=== PATIENT | male | born 1985 | race African-American/Black ===

== ENCOUNTER 2019-09-13 20:09 | Observation (INO) | payer MEDICAID, OTHER ==
[~2019-09-13] VITALS: Ht 172.7 cm; Wt 81.7 kg
[2019-09-13 21:00] LABS: HEMOGLOBIN 15.4 g/dl (13.5-17.5); MEAN CORPUSCULAR HEMOGLOBIN 27.4 pg (27.0-33.0); MEAN CORPUSCULAR HGB CONC 32.8 g/dl (32.0-36.5); MEAN CORPUSCULAR VOLUME 83.5 fl (80.0-96.0); PLATELET COUNT, AUTOMATED 196 10^3/uL (150-450); RED BLOOD COUNT 5.63 10^6/uL (4.30-6.10); WHITE BLOOD COUNT 6.6 10^3/uL (4.0-10.0)
[2019-09-13 21:26] LABS: ABG BASE EXCESS -1.6 (-2.0-2.0); ABG HCO3 23.1 MEQ/L (22.0-26.0); ABG O2 SATURATION 96.1 % (95.0-99.0); ABG PARTIAL PRESSURE CO2 39.1 mmHg (35.0-45.0); ABG PARTIAL PRESSURE O2 80.2 mmHg (75.0-100.0); ABG STANDARD HCO3 23.1 MEQ/L (22.0-26.0); ABG TOTAL CO2 24.3 MEQ/L (22.0-29.0); ABG pH (ARTERIAL) 7.389 UNITS (7.350-7.450)
--- NOTE | 2019-09-13 21:47 | REPVR ---
PROCEDURE INFORMATION: Exam: CT Head Without Contrast Exam date and time: 09/13/2019 9:03 PM Clinical history: 34 years old, male; Altered mental status/memory loss; Confusion or disorientation TECHNIQUE: Imaging protocol: Computed tomography of the head without contrast. Radiation optimization: All CT scans at this facility use at least one of these dose optimization techniques: automated exposure control; mA and/or kV adjustment per patient size (includes targeted exams where dose is matched to clinical indication); or iterative reconstruction. COMPARISON: No relevant prior studies available. FINDINGS: Brain: Normal. No hemorrhage. Unremarkable white matter. No mass effect. Ventricles: Normal. No ventriculomegaly. Bones/joints: Unremarkable. No acute fracture. Sinuses: Visualized sinuses are unremarkable. No fluid levels. Mastoid air cells: Visualized mastoid air cells are well aerated. Soft tissues: Unremarkable. IMPRESSION: No acute intracranial abnormality. Electronically signed by: Alex Scott On 09/13/2019 21:47:09 PM
[2019-09-13 21:50] LABS: ACETAMINOPHEN LEVEL < 2.0 UG/ML (10.0-30.0); ALBUMIN 4.1 GM/DL (3.2-5.2); ALT/SGPT 58 U/L (12-78); BILIRUBIN,DIRECT < 0.1 MG/DL (0.0-0.2); BILIRUBIN,TOTAL 0.3 MG/DL (0.2-1.0); BLOOD UREA NITROGEN 15 MG/DL (7-18); CALCIUM LEVEL 9.1 MG/DL (8.5-10.1); CARBON DIOXIDE LEVEL 28 MEQ/L (21-32); CHLORIDE LEVEL 108 MEQ/L (98-107); CK-MB VALUE MASS 4.2 NG/ML (<3.6); CPK CREATINE PHOSPHOKINASE 1266 U/L (39-308); CREATININE FOR GFR 1.27 MG/DL (0.70-1.30); ETHYL ALCOHOL (ETHANOL) < 0.003 % (0.000-0.010); GLOMERULAR FILTRATION RATE > 60.0 (>60); GLUCOSE, FASTING 89 MG/DL (70-100); MB/CK RELATIVE INDEX 0.33 (< OR =4); POTASSIUM SERUM 3.9 MEQ/L (3.5-5.1); SALICYLATE LEVEL < 1.7 MG/DL (5.0-30.0); SODIUM LEVEL 141 MEQ/L (136-145); TOTAL PROTEIN 8.1 GM/DL (6.4-8.2); TROPONIN I < 0.02 NG/ML (< 0.10)
[2019-09-13 22:28] LABS: AMPHETAMINES LEVEL URINE NEGATIVE (NEGATIVE); BARBITURATES URINE NEGATIVE (NEGATIVE); BENZODIAZEPINES URINE NEGATIVE (NEGATIVE); CANNABINOIDS URINE NEGATIVE (NEGATIVE); COCAINE METABOLITE URINE NEGATIVE (NEGATIVE); METHADONE URINE NEGATIVE (NEGATIVE); OPIATES URINE NEGATIVE (NEGATIVE); PHENCYCLIDINE URINE NEGATIVE (NEGATIVE)
[2019-09-13] MEDS ORDERED: VITMTA PO (22:55)
--- NOTE | 2019-09-13 23:43 | HPEPDOC ---
[facility] Medical History & Physical Date of Admission Sep 13, 2019 Date of Service: Sep 13, 2019 Primary Care Physician: A Attending Physician: ANGE DIANA MD History and Physical CC: dizziness HPI : This 34-year-old male presented after having a syncopal episode. 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 At this point. Patient is unfamiliar with the remainder of the events. His commanding officer, as well as the field medic confirmed the story, stating that patient felt dizzy, sat down and immediately passed out. The medics noted patient had slow respiration, so they started giving patient [id number]. They then attempted to place an oropharyngeal airway, when that appeared not to work and they attempted to place a nasopharyngeal airway, at which point patient started to gag. It was approximately around this time the EMS arrived and st arted to bag mask patient. He was unresponsive during transport to the hospital. There were no reports of seizure-like activity or trauma. Patient states that he had had poor appetite all day. Prior to getting dizzy he had only drank 2 bottles of red bull. During my interview with patient, he was alert, oriented, remember feeling dizzy, but was unable to recall the events after. He had no acute complaints during my assessment. He was aware of surroundings. PAST MEDICAL HISTORY: No reported past medical history PAST SURGICAL HISTORY: None SOCIAL HISTORY: Works in [employer] for the [employer]. FAMILY HISTORY: Denies any history of seizures, denies any heart condition. ALLERGIES: Please s ee below. REVIEW OF SYSTEMS: CONSTITUTIONAL: No fevers, denies chills, denies weight loss, denies lethargy HEENT: No rhinorrhea, no itchy eyes, no congesion, No tonsilor exudates CARDIOVASCULAR: No murmurs no palpitations and arrhythmias RESPIRATORY: Not cough, No SOB, no issues to report GASTROINTESTINAL: No nausea, no vomiting, no difficulty swallowing, no pain with eating, no diarrhea HEMATOLOGICAL: No bleeding GENITOURINARY:No Issues HEMATOLOGIC/LYMPHATIC: No swelling, No bleeding NEURO: Dizziness PE GENERAL APPEARANCE: Alert no acute distress. , Oriented times place, no focal neurological deficits SKIN: Warm, well perfused. ENT: Palate intact, simms tympanic membrane no bulging, no erythema, Neck supple, no thyromegaly THORAX: Symmetrical. LUNGS: Clear to auscultation bilaterally. HEART: Normal S1, S2. No murmurs, no rubs, no gallops ABDOMEN: Soft. No masses. Bowel sounds are present. TRUNK/SPINE:Straight. EXTREMITIES: Moves all extremities equally. No gross deformities. PULSES: 2+ upper and lower extremity . VIEW OF SYSTEMS: Neurologic exam, cranial nerves II-12 intact, reflexes intact, intact sensations bilateral upper and lower extremity, HOME MEDICATIONS: Please see below. LABORATORY DATA: See below. IMAGING: CT head no acute findings MICROBIOLOGY: Please see below. ASSESSMENT/ PLAN is a 34-year-old male with no significant PMH who will be admitted for observation after having a syncopal episode. 1. Syncopal Episode Likely vasovagal in the setting of secondary to poor appetite and consuming red bull. Unlikely to be cardiac or due to heat exhaustion His Trop, EKG, CT of the head was unrevealing. Negative. Drug screen Maur[place] Syncope Risk Score to determine 30 day risk of serious adverse events in patients w syncope = -1 points = Low risk. Patient has a very low risk of serious breathing adverse effects including , arrhythmia or PR. Plan: admit under observation / telemetry / fall & seizure precautions DVT Px w SCDs Disposition: likely home tomorrow if work up is unremarkable, Prior to discharge patient's commanding officer would like to be contacted so they can arrange transportation for patient he can be contacted at [phone], name is staff sergeant Murphy,. If unavailable, please call second Lieut. Luly at [phone] Vital Signs Vital Signs Date Time Temp Pulse Resp B/P (MAP) Pulse Ox O2 Delivery O2 Flow Rate FiO2 09/13/19 23:25 78 95 09/13/19 23:15 17 152/95 (114) 09/13/19 20:40 97.8 Laboratory Data Labs 24H Laboratory Tests 2 09/13/19 20:48: Nucleated Red Blood Cells % (auto) 0.0 09/13/19 20:56: Anion Gap 5L, Glomerular Filtration Rate > 60.0, Calcium Level 9.1, Total Bilirubin 0.3, Direct Bilirubin < 0.1, Aspartate Amino Transf (AST/SGOT) 39H, A lanine Aminotransferase (ALT/SGPT) 58, Alkaline Phosphatase 117, Total Creatine Kinase 1266H, Creatine Kinase MB 4.2H, Creatine Kinase MB Relative Index 0.33, Troponin I < 0.02, Total Protein 8.1, Albumin 4.1, Albumin/Globulin Ratio 1.03, Thyroid Stimulating Hormone (TSH) 1.600, Salicylates Level < 1.7L, Acetaminophen Level < 2.0L, Ethyl Alcohol Level < 0.003 09/13/19 21:18: Blood Gas Bicarbonate Standard 23.1, Arterial Blood pH 7.389, Arterial Blood Partial Pressure CO2 39.1, Arterial Blood Partial Pressure O2 80.2, Arterial Blood Total CO2 24.3, Arterial Blood HCO3 23.1, Arterial Blood Base Excess -1.6, Arterial Blood Oxygen Saturation 96.1 09/13/19 21:48: Urine Opiates Screen NEGATIVE, Urine Methadone Screen NEGATIVE, Urine Barbiturates Screen NEGATIVE, Urine Phencyclidine Screen NEGATIVE, Urine Amphetamines Screen NEGATIVE, Urine Benzodiazepines Screen NEGATIVE, Urine Cocaine Metabolite Screen NEGATIVE, Urine Cannabinoids Screen NEGATIVE CBC/BMP Laboratory Tests 09/13/19 20:48 09/13/19 20:56 Home Medications Scheduled Amlodipine Besylate (Amlodipine Besylate) 2.5 Mg Tablet, 2.5 MG PO DAILY Multivitamins (Thera M Plus Tablet) 1 Each Tablet, 1 TAB PO DAILY Allergies Coded Allergies: amoxicillin (Verified Allergy, Mild, SWELLING, 09/16/19) GME ATTESTATION GME ATTESTATION My faculty preceptor for this patient encounter was physically present during the encounter and was fully available. All aspects of the patient interview, examination, medical decision making process, and medical care plan development were reviewed and approved by the faculty preceptor. The faculty preceptor is aware and concurs with the plan as stated in the body of this note and will attest to such by his/her cosignature. ATTENDING NOTE I examined Mr. Ames at 11:31 PM, and discussed the case with Dr. Hamzah Baker. 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 His physical exam was unremarkable 1. Possible syncope This is the first time this has happened. He denies having any prior medical hi story. His hemoglobin is within normal limits. This is his first syncopal episode. Based on the [place] Syncope Risk Score to determine 30 day risk of serious adverse events in patients w syncope he is at low risk for adverse events Plan: Admit to medical floor under observation/telemetry/follow-up Orthostatics/fall precautions/IV fluids 2. Newly diagnosed Hypertension The patient's blood pressure was as high as 152/95. He denies prior knowledge of a diagnosis of hypertension. His target pressure is under 120/80 Plan: Start amlodipine 2.5 mg daily 3. Elevated CPK Benign (CPK levels may be elevated above the normogram in individuals of descent) versus 2/2 trauma His renal functions not impaired and his drug screen is unremarkable. Plan: IV fluids/follow-up CBC in the morning DVT prophylaxis with SCDs. Disposition likely discharge home in the morning KARLIE RANGEL DO Sep 13, 2019 23:43 ANGE DIANA MD Sep 14, 2019 03:29
[2019-09-14] MEDS ORDERED: NS 1,000 ML IV ONE (03:30)
[2019-09-14] MEDS ORDERED: AMLO25TA PO (03:34)
--- NOTE | 2019-09-14 05:36 | REP ---
Clinical: Altered mental status . Comparison: None . Findings: The mediastinum and cardiac silhouette are stable and within normal limits for portable technique. The lung zarate are clear without acute consolidation, effusion, or pneumothorax. Skeletal structures are intact. Impression: No acute cardiopulmonary process appreciated. Electronically Signed by Justin Montana MD 09/14/2019 05:29 A
[2019-09-14 06:57] LABS: MEAN CORPUSCULAR HEMOGLOBIN 27.1 pg (27.0-33.0); MEAN CORPUSCULAR HGB CONC 31.8 g/dl (32.0-36.5); MEAN CORPUSCULAR VOLUME 85.4 fl (80.0-96.0); PLATELET COUNT, AUTOMATED 112 10^3/uL (150-450); RED BLOOD COUNT 3.28 10^6/uL (4.30-6.10)
[2019-09-14 07:00] LABS: BLOOD UREA NITROGEN 10 MG/DL (7-18); CALCIUM LEVEL 8.3 MG/DL (8.5-10.1); CARBON DIOXIDE LEVEL 27 MEQ/L (21-32); CHLORIDE LEVEL 110 MEQ/L (98-107); CPK CREATINE PHOSPHOKINASE 750 U/L (39-308); CREATININE FOR GFR 1.06 MG/DL (0.70-1.30); GLOMERULAR FILTRATION RATE > 60.0 (>60); GLUCOSE, FASTING 91 MG/DL (70-100); POTASSIUM SERUM 3.9 MEQ/L (3.5-5.1); SODIUM LEVEL 143 MEQ/L (136-145)
[2019-09-14 07:23] LABS: HEMOGLOBIN 8.9 g/dl (13.5-17.5)
[2019-09-14 07:54] LABS: HEMATOCRIT 44.8 % (42.0-52.0); MEAN CORPUSCULAR HEMOGLOBIN 27.4 pg (27.0-33.0); MEAN CORPUSCULAR HGB CONC 32.8 g/dl (32.0-36.5); MEAN CORPUSCULAR VOLUME 83.6 fl (80.0-96.0); PLATELET COUNT, AUTOMATED 173 10^3/uL (150-450); RED BLOOD COUNT 5.36 10^6/uL (4.30-6.10)
[2019-09-14 08:00] LABS: HEMOGLOBIN 14.7 g/dl (13.5-17.5)
[2019-09-14] MEDS ORDERED: NS 1,000 ML IV SCH (09:00)
--- NOTE | 2019-09-14 13:42 | DS.PDOC ---
Discharge Summary General Date of Admission Sep 13, 2019 at 20:10 Date of Discharge Sep 14, 2019 Attending Physician: WEST AMADOR MD Discharge Summary PROCEDURES PERFORMED DURING STAY: [None]. ADMITTING DIAGNOSES / DISCHARGE DIAGNOSES: 1. Syncopal episode - likely 2/2 vasovagal episode, less likely 2/2 cardiogenic etiology COMPLICATIONS/CHIEF COMPLAINT: Syncope. HISTORY OF PRESENT ILLNESS: Patient is a 34-year-old male who presents for syncope. 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 At this point. Patient is unfamiliar with the remainder of the events. His commanding officer, as well as the field medic confirmed the story, stating that patient felt dizzy, sat down and immediately passed out. On initial examination by the medics they noted patient had slow respiration, so they started giving patient [id number]. They then attempted to place. Oropharyngeal airway, when that appeared not to work and they attempted to place a nasopharyngeal airway, at which point patient started to gag. It was approximately around this time the EMS arrived and started to bag mask patient. He was unresponsive to EMS during transport. No reports of seizure-like activity. No trauma reported. Patient states that he had had poor appetite all day. Prior to getting dizzy. He had only drank 2 bottles of red bull On initial evaluation the ED patient was also unresponsive, and appeared confused. During my interview with patient, he was alert, oriented, remember feeling dizzy, but was unable to recall the events after. He had no acute complaints during my assessment. He was aware of surroundings. HOSPITAL COURSE: Patient's EKG was normal. Head CT and CXR were unremarkable. Patient was admitted for observation, placed on telemetry and vital signs were monitored every 4 hours. BP was persistently elevated. He was placed on amlodipine. He had an elevated CK. He was given 2 L of IV normal saline. The following day the patient reported resolution of symptoms and he was discharged home and advised to follow up with his primary care provider. DISCHARGE MEDICATIONS: Please see below. ALLERGIES: Please see below. PHYSICAL EXAMINATION ON DISCHARGE: VITAL SIGNS: Please see below. GENERAL: Patient is seen sitting up in hospital bed, pleasant and cooperative, alert and oriented and in no acute distress HEENT:. Normocephalic, atraumatic. PERRLA. EOMI no scleral icterus. No nasal discharge. No tracheal deviation. No JVD noted CARDIOVASCULAR:. Regular rate and rhythm. Normal S1 and S2. No murmurs, rubs or gallops noted. RESPIRATORY:. Clear to auscultation bilaterally ABDOMINAL:. No lesions noted. Normal bowel sounds in all 4 quadrants. No tenderness to palpation, rebound, guarding or rigidity EXTREMITIES:. 2/4 pulses noted throughout. No calf Swelling or tenderness on palpation. NEUROLOGICAL: Spontaneous movement of all 4 extremities. No focal deficits noted PSYCHOLOGICAL:Mood and Affect normal. LABORATORY DATA: Please see below. IMAGIN09/13/[address]: No acute intracranial abnormality 09/13/2019. CXR: No acute cardiopulmonary process appreciated PROGNOSIS: Good ACTIVITY: [As tolerated]. DIET: Consistent carbohydrate diet DISCHARGE PLAN: -Continue Medications as prescribed -Follow up with PCP within 7 days -Will have outpatient Cardiology follow up -Remain complaint with treatment plan and medications -Return to the ER if you experience any problems DISPOSITION: Home, Self Care DISCHARGE CONDITION: [Stable]. TIME SPENT ON DISCHARGE: 30 minutes. Vital Signs/I&Os Vital Signs Date Time Temp Pulse Resp B/P (MAP) Pulse Ox O2 Delivery O2 Flow Rate FiO2 09/14/19 08:04 115 131/77 (95) 124 134/83 (100) 121 154/84 (107) 09/14/19 03:30 17 98 09/13/19 20:40 97.8 Laboratory Data Labs 24H Laboratory Tests 2 09/13/19 20:48: Nucleated Red Blood Cells % (auto) 0.0 09/13/19 20:56: Anion Gap 5L, Glomerular Filtration Rate > 60.0, Calcium Level 9.1, Total Bilirubin 0.3, Direct Bilirubin < 0.1, Aspartate Amino Transf (AST/SGOT) 39H, Alanine Aminotransferase (ALT/SGPT) 58, Alkaline Phosphatase 117, Total Creatine Kinase 1266H, Creatine Kinase MB 4.2H, Creatine Kinase MB Relative Index 0.33, Troponin I < 0.02, Total Protein 8.1, Albumin 4.1, Albumin/Globulin Ratio 1.03, Thyroid Stimulating Hormone (TSH) 1.600, Salicylates Level < 1.7L, Acetaminophen Level < 2.0L, Ethyl Alcohol Level < 0.003 09/13/19 21:18: Blood Gas Bicarbonate Standard 23.1, Arterial Blood pH 7.389, Arterial Blood Partial Pressure CO2 39.1, Arterial Blood Partial Pressure O2 80.2, Arterial Blood Total CO2 24.3, Arterial Blood HCO3 23.1, Arterial Blood Base Excess -1.6, Arterial Blood Oxygen Saturation 96.1 09/13/19 21:48: Urine Opiates Screen NEGATIVE, Urine Methadone Screen NEGATIVE, Urine Barbiturates Screen NEGATIVE, Urine Phencyclidine Screen NEGATIVE, Urine Amphetamines Screen NEGATIVE, Urine Benzodiazepines Screen NEGATIVE, Urine Cocaine Metabolite Screen NEGATIVE, Urine Cannabinoids Screen NEGATIVE 09/14/19 06:01: Nucleated Red Blood Cells % (auto) 0.0, Anion Gap 6L, Glomerular Filtration Rate > 60.0, Calcium Level 8.3L, Total Creatine Kinase 750H 09/14/19 07:33: Nucleated Red Blood Cells % (auto) 0.0 CBC/BMP Laboratory Tests 09/13/19 20:48 09/13/19 20:56 09/14/19 06:01 09/14/19 07:33 Discharge Medications Scheduled Amlodipine Besylate (Amlodipine Besylate) 2.5 Mg Tablet, 2.5 MG PO DAILY Multivitamins (Thera M Plus Tablet) 1 Each Tablet, 1 TAB PO DAILY, (Reported) Allergies Coded Allergies: amoxicillin (Verified Allergy, Intermediate, 09/13/19) GME ATTESTATION GME ATTESTATION My faculty preceptor for this patient encounter was physically present during the encounter and was fully available. All aspects of the patient interview, examination, medical decision making process, and medical care plan development were reviewed and approved by the faculty preceptor. The faculty preceptor is aware and concurs with the plan as stated in the body of this note and will attest to such by his/her cosignature. ATTENDING NOTE I, [place] Am[place], have independently examined this patient and performed my own physical exam, as well as reviewed the documentation and edited where necessary. I have discussed in detail with the resident / student the findings and plan of treatment as documented by the resident / student and edited their note. I agree with their findings and treatment plan and have edited their documentation. I will continue to follow the patient during this hospital stay. JOSE BRUMFIELD-Mallory Sep 14, 2019 13:42 WEST AMADOR MD Sep 14, 2019 13:53 TRACI RICHARDS MD Sep 14, 2019 15:36
[2019-09-14 14:29] VITALS: BP 128/88
--- NOTE | 2019-09-14 14:29 | ECGEPIP ---
[facility] - ED Test Date: 2019-09-13 Pat Name: IMELDA ALFREDO Department: Room: [place] [address] Gender: Male Office Services Associate: APARNA : 1985 Requested By: Miah Martinez Order Number: [id number] Reading MD: Ariane Calhoun Measurements Intervals [place] Rate: 66 P: 30 LA: 166 QRS: 41 QRSD: 99 T: -7 QT: 370 QTc: 388 Interpretive Statements SINUS RHYTHM MODERATE T-WAVE ABNORMALITY, CONSIDER ANTERIOR ISCHEMIA, CLINICAL CORRELATION NO PRIOR Electronically Signed on 09-14-2019 14:29:27 EDT by Ariane Calhoun
== END 2019-09-14 14:54 | disposition home or self-care (01) ==
LOC: M ED 20:09 → M ED INP 20:10
PROVIDERS: ADMIT Internal Medicine; ATTEND Internal Medicine
DX: R55 Syncope and collapse (principal); R42 Dizziness and giddiness; I10 Essential (primary) hypertension; Z88.0 Allergy status to penicillin; R74.8 Abnormal levels of other serum enzymes
CPT/HCPCS: 36600; 70450; 71045; 80048; 80076; 80307; 82550; 82553; 82803; 84443; 84484; 85027; 93005; 93041; 96360; 96361; 99285; G0480

== ENCOUNTER 2019-09-16 16:52 | Observation (INO) | payer MEDICAID, OTHER, SELFPAY ==
[~2019-09-16] VITALS: Ht 172.7 cm; Wt 85.7 kg
[~2019-09-16 16:52] MED LIST: AMLO25TA PO; VITMTA PO
[2019-09-16] MEDS ORDERED: NS 1,000 ML IV ONE (17:45)
[2019-09-16 17:57] LABS: BASO % 0.2 % (0.0-1.0); EOS # 0.1 10^3/uL (0.0-0.5); HEMOGLOBIN 15.7 g/dl (13.5-17.5); LYMPH # 2.4 10^3/uL (1.5-5.0); LYMPH % 43.7 % (24.0-44.0); MEAN CORPUSCULAR HEMOGLOBIN 27.1 pg (27.0-33.0); MEAN CORPUSCULAR HGB CONC 32.7 g/dl (32.0-36.5); MEAN CORPUSCULAR VOLUME 82.8 fl (80.0-96.0); MONO # 0.6 10^3/uL (0.0-0.8); MONO % 11.2 % (0.0-5.0); NEUTROPHILS # 2.3 10^3/uL (1.5-8.5); NEUTROPHILS % 42.7 % (36.0-66.0); PLATELET COUNT, AUTOMATED 195 10^3/uL (150-450); WHITE BLOOD COUNT 5.4 10^3/uL (4.0-10.0)
[2019-09-16 18:08] LABS: INR 1.03; PROTHROMBIN TIME 13.2 SECONDS (11.8-14.0)
[2019-09-16 18:25] LABS: ALT/SGPT 49 U/L (12-78); BILIRUBIN,DIRECT < 0.1 MG/DL (0.0-0.2); BILIRUBIN,TOTAL 0.3 MG/DL (0.2-1.0); BLOOD UREA NITROGEN 12 MG/DL (7-18); CALCIUM LEVEL 9.6 MG/DL (8.5-10.1); CARBON DIOXIDE LEVEL 28 MEQ/L (21-32); CHLORIDE LEVEL 109 MEQ/L (98-107); CK-MB VALUE MASS 1.2 NG/ML (<3.6); CPK CREATINE PHOSPHOKINASE 447 U/L (39-308); CREATININE FOR GFR 1.13 MG/DL (0.70-1.30); GLOMERULAR FILTRATION RATE > 60.0 (>60); GLUCOSE, FASTING 77 MG/DL (70-100); MAGNESIUM LEVEL 2.1 MG/DL (1.8-2.4); MB/CK RELATIVE INDEX 0.27 (< OR =4); NT-PRO BNP 5 PG/ML (<125); POTASSIUM SERUM 3.8 MEQ/L (3.5-5.1); SODIUM LEVEL 142 MEQ/L (136-145); TROPONIN I < 0.02 NG/ML (< 0.10)
[2019-09-16] MEDS ORDERED: ISOVUE-370 76% 100ML VIAL (Q9967) As Ordered ONE (18:52)
--- NOTE | 2019-09-16 19:36 | REPVR ---
PROCEDURE INFORMATION: Exam: CT Angiography Chest With Contrast Exam date and time: 09/16/2019 7:05 PM Clinical history: 34 years old, male; Shortness of breath; Chest pain; Type not specified; Additional info: Cp/sob TECHNIQUE: Imaging protocol: Computed tomographic angiography of the chest with intravenous contrast. 3D rendering: MIP reconstructed images were created and reviewed. Radiation optimization: All CT scans at this facility use at least one of these dose optimization techniques: automated exposure control; mA and/or kV adjustment per patient size (includes targeted exams where dose is matched to clinical indication); or iterative reconstruction. Contrast material: ISOVUE 370; Contrast volume: 100 ml; Contrast route: IV; COMPARISON: CR PORTABLE CHEST X-RAY 09/13/2019 9:01 PM FINDINGS: Pulmonary arteries: No filling defects in the pulmonary arteries to suggest pulmonary emboli. Aorta: Unremarkable. No aortic aneurysm. No aortic dissection. Lungs: Unremarkable. No consolidation. No masses. Pleural space: Unremarkable. No pneumothorax. No pleural effusion. Heart: Unremarkable. No cardiomegaly. No pericardial effusion. Liver: Enlarged low attenuating liver, evidence of hepatic steatosis. Lymph nodes: Unremarkable. No enlarged lymph nodes. Bones/joints: Mild thoracic kyphosis. Soft tissues: Unremarkable. IMPRESSION: 1. No acute abnormality. 2. No filling defects in the pulmonary arteries to suggest pulmonary emboli. Electronically signed by: Daniel Tyler On 09/16/2019 19:35:37 PM
[2019-09-16] MEDS ORDERED: NITROGLYCERIN 0.4 MG SUBL TABLET SL PRN (23:00)
[2019-09-16] MEDS ORDERED: ACETAMINOPHEN 650MG ER TAB (TYLENOL ARTHRITIS) PO PRN (23:00)
[2019-09-16] MEDS ORDERED: ASPIRIN 81 MG CHEW TABLET PO ONE (23:00)
--- NOTE | 2019-09-16 23:00 | HPEPDOC ---
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 He is from [place] but is in the area completing training; he is not sure if this episode was due to anxiety as he reports shooting guns frequently. He denies knowledge of a family history of sudden cardiac arrest, denies a change in his appetite, denies eating or drinking less than usual and denies consuming caffeinated beverages today. He was admitted on September 13 for evaluation of after having syncopal episode after drinking 2 bottles of red bull, which he reports that he doesn't' normally consume. The workup was unrevealing. He was diagnosed with hypertension and started on amlodipine, but has not had time to picker / packer the medication. REVIEW OF SYSTEMS: 12 point review of systems negative except as listed in HPI PAST MEDICAL/ SURGICAL HISTORY: Newly diagnosed hypertension SOCIAL HISTORY: Is in the works in supplies FAMILY HISTORY: Denies family history of cardiac arrest. ALLERGIES: Please see below. HOME MEDICATIONS: Please see below. PHYSICAL EXAMINATION: VITAL SIGNS: Please see below. GENERAL APPEARANCE: Well-nourished, well-developed, not in apparent distress HEENT: Normocephalic, atraumatic, mucous membranes moist and pink CARDIOVASCULAR: Regular rate and rhythm. No murmurs, rubs or gallops. Left-sided chest pressure is reproducible with palpation LUNGS: Clear to auscultation bilaterally on room air MUSCULOSKELETAL: Range of motion intact in all 4 extremities NEUROLOGICAL: Cranial nerves II-12 are grossly intact. Speech is not dysarthric PSYCHIATRIC: Alert and oriented to person, place and time, able to understand and follow commands LABORATORY DATA: See below. IMAGING: CTA of the chest " IMPRESSION: 1. No acute abnormality. 2. No filling defects in the pulmonary arteries to suggest pulmonary emboli. " CTA abdomen Per discussion with the ED provider was negative, but the final report is pending ASSESSMENT: Mr. Ames is a 34-year-old male with a history of newly diagnosed hypertension who is admitted for evaluation of an episode of dyspnea, weakness, and pleuritic left chest pressure. PLAN: 1. Pleuritic Chest pressure Reproducable w palpation of the left side of the chest Likely musculoskeletal in nature The initial troponin is unremarkable EKG showed normal sinus rhythm with mildly inverted T waves in the lateral leads CTA negative for PE Plan: Admit to general medical floor/telemetry/follow-up serial troponins & report from CTA of the abdomen ordered in the ED/ repeat EKG, with chest pain chest pain/give 1 dose of aspirin/follow-up lipid panel and A1c/nitroglycerin and Tylenol when necessary for chest pain 2. Weakness/shortness of breath Cause to be determined. May be due to anxiety vs accelerated hypertension Plan:f/u TSH / Instructed patient to avoid red bull another caffeinated beverages 3. Newly diagnosed hypertension. Plan: Continue with amlodipine / instructed patient to avoid caffeine and follow up with his PCP to monitor his blood pressure when he returns home DVT prophylaxis not needed as patient is on ventilatory Disposition pending clinical course Vital Signs Vital Signs Date Time Temp Pulse Resp B/P (MAP) Pulse Ox O2 Delivery O2 Flow Rate FiO2 09/16/19 21:45 77 147/98 (114) 100 09/16/19 19:30 Room Air 09/16/19 18:00 17 09/16/19 16:52 97.4 Laboratory Data Labs 24H Laboratory Tests 2 09/16/19 17:45: Immature Granulocyte % (Auto) 0.2, Neutrophils (%) (Auto) 42.7, Lymphocytes (%) (Auto) 43.7, Monocytes (%) (Auto) 11.2H, Eosinophils (%) (Auto) 2.0, Basophils (%) (Auto) 0.2, Neutrophils # (Auto) 2.3, Lymphocytes # (Auto) 2.4, Monocytes # (Auto) 0.6, Eosinophils # (Auto) 0.1, Basophils # (Auto) 0.0, Nucleated Red Blood Cells % (auto) 0.0, Prothrombin Time 13.2, Prothromb Time International Ratio 1.03, Anion Gap 5L, Glomerular Filtration Rate > 60.0, Calcium Level 9.6#, Magnesium Level 2.1, Total Bilirubin 0.3, Direct Bilirubin < 0.1, Aspartate Amino Transf (AST/SGOT) 26, Alanine Aminotransferase (ALT/SGPT) 49, Alkaline Phosphatase 112, Total Creatine Kinase 447H, Creatine Kinase MB 1.2, Creatine Kinase MB Relative Index 0.27, Troponin I < 0.02, SW-Rsl-N-Type Natriuretic Peptide 5, Total Protein 8.0, Albumin 4.0, Albumin/Globulin Ratio 1.00 CBC/BMP Laboratory Tests 09/16/19 17:45 Home Medications Scheduled Amlodipine Besylate (Amlodipine Besylate) 2.5 Mg Tablet, 2.5 MG PO DAILY Allergies Coded Allergies: amoxicillin (Verified Allergy, Mild, SWELLING, 09/16/19) A-FIB/CHADSVASC A-FIB History Current/History of A-Fib/PAF?: No Current PO Anticoag Therapy: ANGE Freeman MD Sep 16, 2019 23:00
[2019-09-16 23:22] LABS: CHOLESTEROL LEVEL 180 MG/DL (<200); CHOLESTEROL RISK RATIO 4.736 (<5); HDL CHOLESTEROL 38 MG/DL (>40); LDL CHOLESTEROL 110 MG/DL (<100); NON-HDL-C 142 MG/DL; TRIGLYCERIDES LEVEL 158 MG/DL (<150)
[2019-09-16 23:43] LABS: HEMOGLOBIN A1c 5.5 %
[2019-09-17 01:00] VITALS: BP 137/86
[2019-09-17 01:43] LABS: TROPONIN I < 0.02 NG/ML (< 0.10)
[2019-09-17 02:00] VITALS: BP 137/86
[2019-09-17 02:05] VITALS: BP_SYST 120; BP_SYST 135; BP_DIAS 65; BP_DIAS 78
[2019-09-17 06:00] VITALS: BP 123/67
[2019-09-17 06:19] LABS: HEMATOCRIT 45.6 % (42.0-52.0); HEMOGLOBIN 14.7 g/dl (13.5-17.5); MEAN CORPUSCULAR HGB CONC 32.2 g/dl (32.0-36.5); MEAN CORPUSCULAR VOLUME 83.7 fl (80.0-96.0); PLATELET COUNT, AUTOMATED 183 10^3/uL (150-450); RED BLOOD COUNT 5.45 10^6/uL (4.30-6.10); WHITE BLOOD COUNT 3.7 10^3/uL (4.0-10.0)
[2019-09-17 06:52] LABS: BLOOD UREA NITROGEN 12 MG/DL (7-18); CARBON DIOXIDE LEVEL 27 MEQ/L (21-32); CHLORIDE LEVEL 110 MEQ/L (98-107); CREATININE FOR GFR 1.02 MG/DL (0.70-1.30); GLOMERULAR FILTRATION RATE > 60.0 (>60); GLUCOSE, FASTING 101 MG/DL (70-100); POTASSIUM SERUM 3.4 MEQ/L (3.5-5.1); SODIUM LEVEL 141 MEQ/L (136-145); TROPONIN I < 0.02 NG/ML (< 0.10)
[2019-09-17] MEDS ORDERED: AMLO25TA PO ×2 (09:56→10:10)
[2019-09-17 10:17] VITALS: BP 123/67
--- NOTE | 2019-09-18 07:21 | REPVR ---
PROCEDURE INFORMATION: Exam: CT Angiography Abdomen and Pelvis With Contrast Exam date and time: 09/16/2019 7:05 PM Clinical history: 34 years old, male; Abdominal pain; Generalized; Additional info: Cp/sob-ro aaa TECHNIQUE: Imaging protocol: Computed tomographic angiography of the abdomen and pelvis with intravenous contrast material. 3D rendering: MIP reconstructed images were created and reviewed. Radiation optimization: All CT scans at this facility use at least one of these dose optimization techniques: automated exposure control; mA and/or kV adjustment per patient size (includes targeted exams where dose is matched to clinical indication); or iterative reconstruction. COMPARISON: No relevant prior studies available. FINDINGS: Lungs: There is mild bilateral posterior dependent lung atelectases. VASCULATURE: Aorta: No aortic aneurysm. No aortic dissection. Celiac trunk and mesenteric arteries: No occlusion or significant stenosis. Renal arteries: No occlusion or significant stenosis. Right iliac arteries: No occlusion or significant stenosis. Left iliac arteries: No occlusion or significant stenosis. ABDOMEN and PELVIS: Liver: No mass. Gallbladder and bile ducts: Unremarkable. No calcified stones. No ductal dilation. Pancreas: Unremarkable. No mass. No ductal dilation. Spleen: Evaluation of the spleen is limited due to heterogeneous phase of enhancement. Adrenals: Unremarkable. No mass. Kidneys and ureters: Unremarkable. No solid mass. No hydronephrosis. Stomach and bowel: There is central clustering of small bowel loops with questionable wall thickening and hyperemia. Appendix: No evidence of appendicitis. Intraperitoneal space: Unremarkable. No free air. No significant fluid collection. Lymph nodes: Unremarkable. No enlarged lymph nodes. Bladder: Unremarkable. No mass. Reproductive: Unremarkable as visualized. Bones/joints: No acute fracture. No dislocation. Soft tissues: Unremarkable. IMPRESSION: 1. No CT evidence of aortic aneurysm, dissection or mesenteric arterial occlusion. 2. No CT evidence of small bowel obstruction. 3. Apparent small bowel wall thickening and hyperemia. Correlate clinically for enteritis. Electronically signed by: Donis Snow On 09/18/2019 07:21:01 AM
--- NOTE | 2019-09-18 11:45 | DS.PDOC ---
Discharge Summary General Date of Admission Sep 16, 2019 at 16:53 Date of Discharge 09/18/19 Discharge Summary PROCEDURES PERFORMED DURING STAY: [None]. DISCHARGE DIAGNOSES: Non specific chest pain COMPLICATIONS/CHIEF COMPLAINT: Chest Pain. HISTORY OF PRESENT ILLNESS: See History and physical HOSPITAL COURSE: Mr. 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 Was evaluated with EKG showed ST wave changes with T wave inversions of the V3, V4 leads unknown whether new or old. Telemetry was negative for any arrhythmias. he was found to have hypertension and was started on amlodipine. This time he presented with an episode of dyspnea, weakness, and left chest pressure. Chest pressure Reproducible with palpation of the left side of the chest Negative CT angio of chest 3 sets of cardiac enzymes were negative EKG showed more ST t wave changes with t inversion now also involving the V5 and V6 leads compared to the one 2 days ago. Patient will need to be evaluated as an outpatient for CAD with stress test and echocardiogram. Weakness/shortness of breath could be due to anxiety/ cardiac cause. needs follow up with cardiology. Newly diagnosed hypertension. Plan: Continue with amlodipine DISCHARGE MEDICATIONS: Please see below. ALLERGIES: Please see below. PHYSICAL EXAMINATION ON DISCHARGE: VITAL SIGNS: Please see below. GENERAL APPEARANCE: Well-nourished, well-developed, not in apparent distress HEENT: Normocephalic, atraumatic, mucous membranes moist and pink CARDIOVASCULAR: Regular rate and rhythm. No murmurs, rubs or gallops. Left-sided chest pressure is reproducible with palpation LUNGS: Clear to auscultation bilaterally on room air MUSCULOSKELETAL: Range of motion intact in all 4 extremities NEUROLOGICAL: Cranial nerves II-12 are grossly intact. Speech is not dysarthric PSYCHIATRIC: Alert and oriented to person, place and time, able to understand and follow commands LABORATORY DATA: Please see below. IMAGING: CTA of the chest " IMPRESSION: 1. No acute abnormality. 2. No filling defects in the pulmonary arteries to suggest pulmonary emboli. " CTA abdomen Per discussion with the ED provider was negative, but the final report is pending ACTIVITY: [As tolerated]. DIET: regular DISPOSITION: 01 Home, Self-Care. DISCHARGE INSTRUCTIONS: Follow up with PMD in 1 week Needs referral to cardiology for work up of CAD. DISCHARGE CONDITION: [Stable]. TIME SPENT ON DISCHARGE: 35 minutes. Vital Signs/I&Os Vital Signs Date Time Temp Pulse Resp B/P (MAP) Pulse Ox O2 Delivery O2 Flow Rate FiO2 09/17/19 10:17 65 123/67 09/17/19 06:00 98.1 15 99 Room Air I&O- Last 24 Hours up to 6 AM 09/18/19 06:00 Intake Total 300 ml Balance 300 ml Laboratory Data CBC/BMP Item Value Date Time White Blood Count 3.7 10^3/uL L 09/17/19 0556 Red Blood Count 5.45 10^6/uL 09/17/19 0556 Hemoglobin 14.7 g/dl 09/17/19 0556 Hematocrit 45.6 % 09/17/19 0556 Mean Corpuscular Volume 83.7 fl 09/17/19 0556 Mean Corpuscular Hemoglobin 27.0 pg 09/17/19 05 Mean Corpuscular Hemoglobin Concent 32.2 g/dl 09/17/19 0556 Red Cell Distribution Width 13.3 % 09/17/19 0556 Platelet Count 183 10^3/uL 09/17/19 0556 Nucleated Red Blood Cells % (auto) 0.0 % 09/17/19 0556 Sodium Level 141 MEQ/L 09/17/19 0556 Potassium Level 3.4 MEQ/L L 09/17/19 0556 Chloride Level 110 MEQ/L H 09/17/19 0556 Carbon Dioxide Level 27 MEQ/L 09/17/19 0556 Anion Gap 4 MEQ/L L 09/17/19 0556 Blood Urea Nitrogen 12 MG/DL 09/17/19 0556 Creatinine 1.02 MG/DL 09/17/19 0556 Glomerular Filtration Rate > 60.0 09/17/19 0556 Fasting Glucose 101 MG/DL H 09/17/19 0556 Hemoglobin A1c 5.5 % 09/16/19 1745 Calcium Level 9.0 MG/DL 09/17/19 0556 Troponin I < 0.02 NG/ML 09/17/19 0556 Thyroid Stimulating Hormone (TSH) 4.820 uIU/ML H 09/17/19 0039 Discharge Medications Scheduled Amlodipine Besylate (Amlodipine Besylate) 2.5 Mg Tablet, 2.5 MG PO DAILY Allergies Coded Allergies: amoxicillin (Verified Allergy, Mild, SWELLING, 09/16/19) TITUS MEDINA MD Sep 18, 2019 11:45
--- NOTE | 2019-09-18 19:40 | ECGEPIP ---
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
== END 2019-09-17 10:20 | disposition home or self-care (01) ==
LOC: M ED 16:52 → M ED INP 16:53 → M MSPAV 09-17 00:53
PROVIDERS: ADMIT Internal Medicine; ATTEND Internal Medicine Nephrology
DX: R07.9 Chest pain, unspecified (principal); I10 Essential (primary) hypertension; R06.09 Other forms of dyspnea; R53.1 Weakness; Z88.0 Allergy status to penicillin; Z79.899 Other long term (current) drug therapy
CPT/HCPCS: 36415; 71275; 74174; 80048; 80061; 80076; 82550; 82553; 83036; 83735; 83880; 84443; 84484; 85025; 85027; 85610; 93005; 96374; 99285; Q9967